=== PATIENT | male | born 1995 | race American Indian/Alaskan Native ===

== ENCOUNTER 2016-07-21 17:41 | Emergency (ER) | payer BC ==
[2016-07-21] MEDS ORDERED: NACL 0.9% 1000 ML 1,000 ML IV ONE ×2 (19:09→21:07)
[2016-07-21 19:38] LABS: Basophils % (Auto) 0.6 % (0.0-1.8); Eosinophils % (Auto) 0.7 % (0.0-4.3); Hematocrit 45.1 % (35.5-45.6); Hemoglobin 14.5 gm/dl (11.8-15.2); Mean Corpuscular HGB Conc 32 % (32-34); Mean Corpuscular Hemoglobin 30 pg (28-32); Mean Corpuscular Volume 93 fl (84-94); Platelet Count 158 K/mm3 (140-440); Red Blood Count 4.83 M/mm3 (3.65-5.03); Red Cell Distribution Width 13.3 % (13.2-15.2); White Blood Count 7.6 K/mm3 (4.5-11.0)
[2016-07-21 19:48] LABS: INR 0.99 (0.87-1.13)
[2016-07-21 19:49] LABS: Partial Thromboplastin Time 25.5 Sec. (24.2-36.6)
[2016-07-21 19:54] LABS: Alanine Aminotransferase 12 units/L (7-56); Albumin 3.9 g/dL (3.9-5); Albumin/Globulin Ratio 2.3 %; Alkaline Phosphatase 42 units/L (35-129); Anion Gap 13 mmol/L; BUN/Creatinine Ratio 13.33; Blood Urea Nitrogen 12 mg/dL (9-20); Calcium 9.1 mg/dL (8.4-10.2); Carbon Dioxide 30 mmol/L (22-30); Chloride 104.1 mmol/L (98-107); Glucose 87 mg/dL (75-100); Lipase 16 units/L (13-60); Potassium 4.7 mmol/L (3.6-5.0); Sodium 142 mmol/L (137-145); Total Protein 5.6 g/dL (6.3-8.2)
[2016-07-21] MEDS ORDERED: PEPCID IV ONE (21:07)
[2016-07-21] MEDS ORDERED: BENTYL IM ONE (21:07)
--- NOTE | 2016-07-21 21:08 | Emergency Department Report ---
ED GI Bleed HPI - General Chief complaint: GI Bleed Stated complaint: Rectal Bleed Time Seen by Provider: 07/21/16 20:55 Source: patient, RN notes reviewed Mode of arrival: Ambulatory Limitations: No Limitations - History of Present Illness Initial comments: This is a 20-year-old male. He is previously unknown to me. He denies chronic medical conditions. The patient does not take any anticoagulation. The patient does not have a primary care doctor or site controller. The patient presents to the ER with crampy lower abdominal pain, brown stool mixed with red blood. This started today. The pain is crampy. It does not radiate anywhere. It has no exacerbating or relieving factors. There is no headache, neck pain , chest pain, shortness of breath, there are no irritative or obstructive urinary symptoms. The patient denies receptive anal intercourse, denies straining and constipation during defecation, and he also denies insertion of foreign objects. He describes the stool is brown with red blood. MD complaint: blood on toilet paper, blood streaked stool -: Sudden Location: suprapubic Radiation: none Quality: cramping Consistency: intermittent Improves with: none Worsens with: none Associated Symptoms: abdominal pain. denies: nausea, vomiting, epistaxis, fever /chills, headaches, loss of appetite, malaise, easy bruising, shortness of breath, syncope, weakness - Related Data Previous Rx's Medication Instructions Recorded Last Taken Type Dicyclomine [Bentyl] 10 mg PO QID PRN #20 capsule 07/21/16 Unknown Rx Ondansetron [Zofran Odt] 4 mg PO QID PRN #20 tab.rapdis 07/21/16 Unknown Rx Allergies Allergy/AdvReac Type Severity Reaction Status Date / Time No Known Allergies Allergy Unverified 07/21/16 19:05 ED Review of Systems ROS: Stated complaint: Rectal Bleed Other details as noted in HPI Constitutional: denies: fever Eyes: denies: vision change ENT: denies: epistaxis Cardiovascular: denies: palpitations Gastrointestinal: abdominal pain, hematochezia Genitourinary: as per HPI. denies: dysuria, testicular pain Musculoskeletal: denies: back pain Neurological: denies: headache, weakness Psychiatric: as per HPI ED Past Medical Hx - Past Medical History Previous Medical History?: Yes Additional medical history: Gi Bleeding - Surgical History Past Surgical History?: No - Social History Smoking Status: Current Every Day Smoker Substance Use Type: Alcohol, Marijuana - Medications Home Medications: Home Medications Medication Instructions Recorded Confirmed Last Taken Type Dicyclomine [Bentyl] 10 mg PO QID PRN #20 capsule 07/21/16 Unknown Rx Ondansetron [Zofran Odt] 4 mg PO QID PRN #20 tab.rapdis 07/21/16 Unknown Rx ED Physical Exam - General Limitations: No Limitations General appearance: alert, in no apparent distress - Head Head exam: Present: atraumatic, normocephalic - Eye Eye exam: Present: normal appearance, EOMI. Absent: nystagmus - ENT ENT exam: Present: normal exam, normal orophraynx, mucous membranes moist, normal external ear exam - Neck Neck exam: Present: normal inspection, full ROM. Absent: tenderness, meningismus - Respiratory Respiratory exam: Present: normal lung sounds bilaterally. Absent: respiratory distress, wheezes, rales, rhonchi, stridor, chest wall tenderness - Cardiovascular Cardiovascular Exam: Present: normal rhythm, bradycardia, normal heart sounds. Absent: irregular rhythm, systolic murmur, diastolic murmur, rubs, gallop - GI/Abdominal GI/Abdominal exam: Present: soft, tenderness, normal bowel sounds, other (there is mild periumbilical tenderness. There is no rebound, guarding or peritoneal signs.). Absent: distended, guarding, rebound, rigid, pulsatile mass - Rectal Rectal exam: Present: normal inspection, normal rectal tone, heme (-) stool, other (escorted by nurse Sobia Boothe) - Extremities Exam Extremities exam: Present: normal inspection, full ROM, normal capillary refill. Absent: tenderness, pedal edema, joint swelling, calf tenderness - Back Exam Back exam: Present: normal inspection, full ROM. Absent: tenderness, CVA tenderness (R), CVA tenderness (L), muscle spasm, paraspinal tenderness, vertebral tenderness - Neurological Exam Neurological exam: Present: alert, oriented X3, normal gait, other (Extraocular movements intact. Tongue midline. No facial droop. Facial sensation intact to light touch in the V1, V2, V3 distribution bilaterally. 5 and 5 strength in 4 extremities.. Sensation is intact to light touch in 4 extremities.). Absent : motor sensory deficit - Psychiatric Psychiatric exam: Present: normal affect, normal mood - Skin Skin exam: Present: warm, dry, intact, normal color. Absent: rash ED Course Vital Signs 07/21/16 07/21/16 07/21/16 19:05 20:32 20:46 Temperature 98.6 F Pulse Rate 50 L 50 L 54 L Respiratory 18 14 Rate Blood Pressure 117/72 134/64 O2 Sat by Pulse 100 95 98 Oximetry 07/21/16 07/21/16 07/21/16 21:00 21:40 22:00 Temperature Pulse Rate 75 64 58 L Respiratory 16 15 14 Rate Blood Pressure 134/64 131/63 O2 Sat by Pulse 99 92 99 Oximetry - Reevaluation(s) Reevaluation #1: 07/21/16 22:25 differential diagnosis: Inflammatory bowel disease, colitis, diverticulitis, anal fissure, proctitis Assessment and plan: 20-year-old male with abdominal cramping and brown stool mixed with red blood. Hemoglobin and hematocrit unremarkable, there is no obvious bleeding on rectal examination, the patient is guaiac negative on exam. A CT scan demonstrated no evidence of surgical disease, the patient has been observed in the ER for a long period of time without clinical decompensation. His physical exam does not suggest proctitis or anal fissure. The patient is suitable to follow up with outpatient gastroenterology for further evaluation and management. Return precautions are reviewed. ED Medical Decision Making - Lab Data Result diagrams: 07/21/16 19:22 07/21/16 19:22 Vital Signs 07/21/16 07/21/16 07/21/16 19:05 20:32 20:46 Temperature 98.6 F Pulse Rate 50 L 50 L 54 L Respiratory 18 14 Rate Blood Pressure 117/72 134/64 O2 Sat by Pulse 100 95 98 Oximetry 07/21/16 21:00 Temperature Pulse Rate 75 Respiratory 16 Rate Blood Pressure 134/64 O2 Sat by Pulse 99 Oximetry Lab Results 07/21/16 07/21/16 07/21/16 Range/Units 19:22 19:22 19:22 WBC 7.6 (4.5-11.0) K/mm3 RBC 4.83 (3.65-5.03) M/mm3 Hgb 14.5 (11.8-15.2) gm/dl Hct 45.1 (35.5-45.6) % MCV 93 (84-94) fl MCH 30 (28-32) pg MCHC 32 (32-34) % RDW 13.3 (13.2-15.2) % Plt Count 158 (140-440) K/mm3 Lymph % (Auto) 16.7 (13.4-35.0) % [place] % (Auto) 6.0 (0.0-7.3) % Eos % (Auto) 0.7 (0.0-4.3) % Baso % (Auto) 0.6 (0.0-1.8) % Lymph # 1.3 (1.2-5.4) K/mm3 [place] # 0.5 (0.0-0.8) K/mm3 Eos # 0.1 (0.0-0.4) K/mm3 Baso # 0.0 (0.0-0.1) K/mm3 Seg Neutrophils % 76.0 H (40.0-70.0) % Seg Neutrophils # 5.8 (1.8-7.7) K/mm3 PT 13.0 (12.2-14.9) Sec. INR 0.99 (0.87-1.13) APTT 25.5 (24.2-36.6) Sec. Sodium 142 (137-145) mmol/L Potassium 4.7 (3.6-5.0) mmol/L Chloride 104.1 (98-107) mmol/L Carbon Dioxide 30 (22-30) mmol/L Anion Gap 13 mmol/L BUN 12 (9-20) mg/dL Creatinine 0.9 (0.8-1.5) mg/dL Estimated GFR > 60 ml/min BUN/Creatinine Ratio 13.33 % Glucose 87 (75-100) mg/dL Calcium 9.1 (8.4-10.2) mg/dL Magnesium (1.7-2.3) mg/dL Total Bilirubin 1.00 (0.1-1.2) mg/dL AST 19 (5-40) units/L ALT 12 (7-56) units/L Alkaline Phosphatase 42 (35-129) units/L Total Protein 5.6 L (6.3-8.2) g/dL Albumin 3.9 (3.9-5) g/dL Albumin/Globulin Ratio 2.3 % Lipase 16 (13-60) units/L Blood Type Antibody Screen AMBER Antibody Screen 07/21/16 07/21/16 Range/Units 19:22 19:26 WBC (4.5-11.0) K/mm3 RBC (3.65-5.03) M/mm3 Hgb (11.8-15.2) gm/dl Hct (35.5-45.6) % MCV (84-94) fl MCH (28-32) pg MCHC (32-34) % RDW (13.2-15.2) % Plt Count (140-440) K/mm3 Lymph % (Auto) (13.4-35.0) % [place] % (Auto) (0.0-7.3) % Eos % (Auto) (0.0-4.3) % Baso % (Auto) (0.0-1.8) % Lymph # (1.2-5.4) K/mm3 [place] # (0.0-0.8) K/mm3 Eos # (0.0-0.4) K/mm3 Baso # (0.0-0.1) K/mm3 Seg Neutrophils % (40.0-70.0) % Seg Neutrophils # (1.8-7.7) K/mm3 PT (12.2-14.9) Sec. INR (0.87-1.13) APTT (24.2-36.6) Sec. Sodium (137-145) mmol/L Potassium (3.6-5.0) mmol/L Chloride (98-107) mmol/L Carbon Dioxide (22-30) mmol/L Anion Gap mmol/L BUN (9-20) mg/dL Creatinine (0.8-1.5) mg/dL Estimated GFR ml/min BUN/Creatinine Ratio % Glucose (75-100) mg/dL Calcium (8.4-10.2) mg/dL Magnesium 1.70 (1.7-2.3) mg/dL Total Bilirubin (0.1-1.2) mg/dL AST (5-40) units/L ALT (7-56) units/L Alkaline Phosphatase (35-129) units/L Total Protein (6.3-8.2) g/dL Albumin (3.9-5) g/dL Albumin/Globulin Ratio % Lipase (13-60) units/L Blood Type A POSITIVE Antibody Screen TNR AMBER Antibody Screen Negative - EKG Data -: EKG Interpreted by Me Rate: bradycardia - EKG Data When compared to previous EKG there are: previous EKG unavailable 07/21/16 22:26 Sinus bradycardia, 52 bpm, normal intervals, normal axis, likely benign early repolarization not having chest pain - Radiology Data Radiology results: report reviewed ct scan of the abdomen pelvis negative for acute disease Critical care attestation.: If time is entered above; I have spent that time in minutes in the direct care of this critically ill patient, excluding procedure time. ED Disposition Clinical Impression: History of GI bleed Disposition: TO HOME OR SELFCARE Is pt being admited?: No Does the pt Need Aspirin: No Condition: Stable Instructions: Gastrointestinal Bleeding (ED), Rectal Bleeding (ED) Additional Instructions: Take the pain medication, nausea medication as needed/directed. Follow up with a site controller within the next 2-3 weeks. Not following up in the timely fashion may result in an undiagnosed tumor/cancer/malignancy/inflammatory bowel disease. Contact [facility] at the listed phone number, or through the following patient service hotline: 0.110.GO.TO.[facility] ([phone]) Avoid consumption of Aleve, aspirin, Motrin, ibuprofen, aspirin. Return to the ER right away with new pain, worsened pain, migration of pain, fevers, chills, profuse bleeding, dizziness, lightheadedness, chest pain, shortness of breath, confusion Prescriptions: Dicyclomine [Bentyl] 10 mg PO QID PRN #20 capsule PRN Reason: Pain Ondansetron [Zofran Odt] 4 mg PO QID PRN #20 tab.rapdis PRN Reason: Nausea Referrals: PRIMARY CARE, [Primary Care Provider] - 3-5 Days FABRICIO TODD MD [Staff Physician] - 3-5 Days Forms: Accompanied Note
[2016-07-21] MEDS ORDERED: NACL ONE (21:23)
--- NOTE | 2016-07-21 22:02 | Cat Scan Report ---
FINAL REPORT PROCEDURE: CT ABDOMEN PELVIS W CON TECHNIQUE: Computerized axial tomography of the abdomen and pelvis was performed after the IV injection of iodinated nonionic contrast. HISTORY: abd pain GI bleed COMPARISON: No prior studies are available for comparison. FINDINGS: Visualized lower thorax: No significant abnormality. Liver: Normal size and attenuation. Spleen: Normal size and attenuation. Gallbladder and biliary system: Normal. Pancreas: Normal. Adrenals: Normal. Kidneys: Normal. No hydronephrosis. GI tract: Normal. No dilated loops of large or small bowel. Appendix is not visualized. Lymph nodes and mesentery: Normal. Vasculature: Normal. Bladder: Normal. Reproductive organs: Normal. Peritoneum: No free fluid. Musculoskeletal structures: No significant abnormality. Other: None. IMPRESSION: No mass or obstruction.
[2016-07-21 22:40] VITALS: BP 131/63
== END 2016-07-21 22:40 | disposition home or self-care (01) ==
LOC: ED 17:41
DX: R10.30 Lower abdominal pain, unspecified (principal); F12.10 Cannabis abuse, uncomplicated; F17.200 Nicotine dependence, unspecified, uncomplicated
CPT/HCPCS: 36415; 74177; 80053; 82271; 83690; 83735; 85025; 85610; 85730; 86850; 86900; 86901; 93005; 93010; 96361; 96372; 96374; 99285; J0500; J7030; Q9967; 99284

== ENCOUNTER 2020-09-04 12:49 | Emergency (ER) | payer BC ==
[2020-09-04 13:07] VITALS: BP 134/74
--- NOTE | 2020-09-04 13:48 | Emergency Department Report ---
Chief Complaint: Urogenital-Male Stated Complaint: POSS TRICHOMONIASIS Time Seen by Provider: 09/04/20 13:44 - HPI History of Present Illness: 24-year-old -[place] male presents to the emergency room stating his girlfriend tested positive for trichomoniasis. Patient denies any testicular pain testicular swelling no fever no chills no nausea no vomiting. Patient states he just has a small amount of penile discharge. Patient denies any dysuria. - Exam Vital Signs: Vital Signs 09/04/20 13:06 Temperature 99.0 F Pulse Rate 67 Respiratory 18 Rate Blood Pressure 134/74 O2 Sat by Pulse 100 Oximetry Physical Exam: General: Awake, appropriately interactive, no acute distress. Neck: Supple. Full range of motion intact. Cardiovascular: Normal peripheral perfusion. Pulmonary: No respiratory distress. Patient is speaking normally without use of accessory muscles. Skin: No apparent rashes or lesions. Neurological: No facial asymmetry. Speech is clear. Follows commands. Patient is alert and oriented. Musculoskeletal: Full range of motion, no crepitus. Able to bear weight and ambulate without difficulty. Distal neurovascular and motor/sensory function is intact. Psych: Cooperative. Appropriate mood and affect. MSE screening note: Focused history and physical exam performed. Due to findings the following was ordered: 24-year-old -[place] male presents to the emergency room stating his girlfriend tested positive for trichomoniasis. Patient denies any testicular pain testicular swelling no fever no chills no nausea no vomiting. Patient states he just has a small amount of penile discharge. Patient denies any dysuria. Recommend patient to follow-up in urgent care health department. Patient verbalized understanding. ED Disposition for MSE Disposition: DC-01 TO HOME OR SELFCARE Is pt being admited?: No Does the pt Need Aspirin: No Condition: Stable Additional Instructions: Recommend to follow-up in urgent care health department primary care provider. Patient is a full work-up. [facility] [Outside] - 3-5 Days [facility] [Outside] - 3-5 Days [facility] [Other] - 3-5 Days Time of Disposition: 13:48
== END 2020-09-04 14:02 | disposition home or self-care (01) ==
LOC: ED 12:49
DX: R36.9 Urethral discharge, unspecified (principal)
CPT/HCPCS: 99281